=== PATIENT | female | born 1955 | race Caucasian/White ===

== ENCOUNTER 2017-11-06 12:58 | Day surgery (SDC) | payer OTHER ==
[~2017-11-06] VITALS: Ht 157.5 cm; Wt 69.8 kg
[~2017-11-06 12:58] MED LIST: ALEN70 PO; AMOX875 PO; BUTONI; CYCL10 PO; DULO30; DULO30 PO; HYDACE5; HYDACE5 PO; HYDMOR2 PO; LORA1 PO; NAPR500 PO; PRAM.125; PRAM.5 PO; PRED20 PO; RANI150 PO; RXHYDMOR2 PO; RXLORA1 PO; SUMA25; SUMA25 PO
[2017-11-06] MEDS ORDERED: BUSP5 (13:49)
[2017-11-06] MEDS ORDERED: ESCI5 (13:50)
[2017-11-06] MEDS ORDERED: ASPI81CH (13:51)
== END 2017-11-06 15:25 | disposition home or self-care (01) ==
LOC: ORSCSDS 12:58
PROVIDERS: Internal Medicine Gastroenterology
PROC: 0DJD8ZZ Inspection of Lower Intestinal Tract, Via Natural or Artificial Opening Endoscopic (ICD-10-PCS; principal; 2017-11-06 14:30)
DX: Z12.11 Encounter for screening for malignant neoplasm of colon (principal); K64.8 Other hemorrhoids; I10 Essential (primary) hypertension; K21.9 Gastro-esophageal reflux disease without esophagitis; E78.5 Hyperlipidemia, unspecified; F41.8 Other specified anxiety disorders; Z79.82 Long term (current) use of aspirin; Z79.899 Other long term (current) drug therapy
CPT/HCPCS: J7120

== ENCOUNTER 2019-08-29 11:16 | Day surgery (SDC) | payer OTHER ==
[~2019-08-29] VITALS: Ht 154.9 cm; Wt 169.5 kg
[~2019-08-29 11:16] MED LIST changes: +ASCO500 PO; +ASPI81CH; +Alendronate Sod10 MG PO; +Aspirin EC81 MG PO; +BUSP10 PO; +BUSP5; +CALCIUM + D3 E1 EACH PO; +ESCI10 PO; +ESCI5; +FISH OIL 1,2001 EACH PO; +IRBE150 PO; +Imitrex100 MG PO; +MULTIPLE VITAM1 EACH PO; +Norco 5-325 Ta1 EACH; +PRAMIPEXOLE DI1.5 MG
== END 2019-08-29 16:20 | disposition home or self-care (01) ==
LOC: ORSCSDS 11:16
PROVIDERS: Podiatrist Foot & Ankle Surgery
PROC: 0SGN04Z Fusion of Left Metatarsal-Phalangeal Joint with Internal Fixation Device, Open Approach (ICD-10-PCS; principal; 2019-08-29 12:30)
PROC: 0QSP04Z Reposition Left Metatarsal with Internal Fixation Device, Open Approach (ICD-10-PCS; principal; 2019-08-29 12:30)
PROC: 0SGQ04Z Fusion of Left Toe Phalangeal Joint with Internal Fixation Device, Open Approach (ICD-10-PCS; principal; 2019-08-29 12:30)
DX: M21.612 Bunion of left foot (principal); M20.40 Other hammer toe(s) (acquired), unspecified foot; M13.872 Other specified arthritis, left ankle and foot; I10 Essential (primary) hypertension; E78.5 Hyperlipidemia, unspecified; Z79.899 Other long term (current) drug therapy; Z79.82 Long term (current) use of aspirin
CPT/HCPCS: C1713; J0171; J0690; J1100; J1885; J2250; J2405; J2704; J3010; J7120

== ENCOUNTER → 2020-03-06 | Outpatient (CLI) | payer OTHER | END | disposition home or self-care (01) | LOC: LAB SHORT 16:46 → LAB EV 16:46 | DX: R22.40 Localized swelling, mass and lump, unspecified lower limb (principal) | CPT/HCPCS: 85379 ==

== ENCOUNTER → 2020-06-03 | Outpatient (CLI) | payer OTHER ==
[2020-06-03 12:02] LABS: BASOPHILS ABSOLUTE AUTO 0.05 K/mm3 (0.00-0.23); BASOPHILS PERCENT AUTO 1 % (0-2); EOSINOPHILS ABSOLUTE AUTO 0.21 K/mm3 (0.00-0.68); EOSINOPHILS PERCENT AUTO 3 % (0-6); Hematocrit 41.7 % (33.0-51.0); Hemoglobin 14.4 g/dL (11.5-16.0); IMMATURE GRAN ABSOLUTE AUTO 0.02 K/mm3 (0.00-0.10); IMMATURE GRAN PERCENT AUTO 0 % (0-1); LYMPHOCYTES ABSOLUTE AUTO 2.07 K/mm3 (0.84-5.20); LYMPHOCYTES PERCENT AUTO 27 % (21-46); MONOCYTES ABSOLUTE AUTO 0.64 K/mm3 (0.16-1.47); MONOCYTES PERCENT AUTO 8 % (4-13); Mean Corpuscular HGB 32.1 pg (26.0-34.0); Mean Corpuscular HGB Conc 34.5 g/dL (31.5-36.5); Mean Corpuscular Volume 93 fL (80-100); Mean Platelet Volume 9.7 fL (9.1-12.4); NEUTROPHILS ABSOLUTE AUTO 4.79 K/mm3 (1.96-9.15); NEUTROPHILS PERCENT AUTO 62 % (41-73); Platelet Count 289 K/mm3 (150-400); RDW Coefficient Variation 12.3 % (11.7-14.2); RDW Standard Deviation 41.8 fL (35.1-46.3); Red Blood Cell Count 4.49 M/mm3 (3.80-5.20); White Blood Cell Count 7.78 K/mm3 (4.00-11.30)
[2020-06-03 12:11] LABS: Anion Gap 8 mmol/L (6-16); Blood Urea Nitrogen 18 mg/dL (8-24); Bun/Creatinine Ratio 21.4 (12.0-20.0); CO2, Blood 30 mmol/L (21-32); Calcium, Blood 9.4 mg/dL (8.5-10.1); Chloride, Blood 99 mmol/L (98-108); Creatinine, Blood 0.84 mg/dL (0.40-1.00); Glomerular Filtration Rate >60 (60-); Glucose, Blood 98 mg/dL (70-99); Sodium, Blood 137 mmol/L (136-145)
[2020-06-03 12:27] LABS: Troponin I <0.017 ng/mL (0.000-0.040)
== END ==
LOC: LAB SHORT 11:56 → LAB EV 11:56
PROVIDERS: Physician Assistant Surgical
DX: R05 Cough (principal); R42 Dizziness and giddiness; Z20.828 Contact with and (suspected) exposure to other viral communicable diseases
CPT/HCPCS: 80048; 84484; 85025; 85379; U0003

== ENCOUNTER → 2020-07-03 | Outpatient (CLI) | payer OTHER ==
[2020-07-03 07:52] LABS: BASOPHILS ABSOLUTE AUTO 0.06 K/mm3 (0.00-0.23); BASOPHILS PERCENT AUTO 1 % (0-2); EOSINOPHILS ABSOLUTE AUTO 0.23 K/mm3 (0.00-0.68); EOSINOPHILS PERCENT AUTO 3 % (0-6); Hematocrit 39.7 % (33.0-51.0); Hemoglobin 13.5 g/dL (11.5-16.0); IMMATURE GRAN ABSOLUTE AUTO 0.03 K/mm3 (0.00-0.10); IMMATURE GRAN PERCENT AUTO 0 % (0-1); LYMPHOCYTES PERCENT AUTO 30 % (21-46); MONOCYTES ABSOLUTE AUTO 0.55 K/mm3 (0.16-1.47); MONOCYTES PERCENT AUTO 8 % (4-13); Mean Corpuscular HGB 31.9 pg (26.0-34.0); Mean Corpuscular Volume 94 fL (80-100); Mean Platelet Volume 9.8 fL (9.1-12.4); NEUTROPHILS PERCENT AUTO 57 % (41-73); Platelet Count 260 K/mm3 (150-400); RDW Coefficient Variation 11.9 % (11.7-14.2); RDW Standard Deviation 41.1 fL (35.1-46.3); Red Blood Cell Count 4.23 M/mm3 (3.80-5.20); White Blood Cell Count 6.67 K/mm3 (4.00-11.30)
[2020-07-03 08:19] LABS: Alanine Aminotransfer (ALT/SGP 28 U/L (12-78); Albumin, Blood 3.8 g/dL (3.4-5.0); Albumin/Globulin Ratio 1.1 (0.8-1.8); Alk Phos 77 U/L (40-126); Anion Gap 8 mmol/L (6-16); Aspartate Aminotrans (AST/SGOT 17 U/L (12-37); Bilirubin, Total 0.5 mg/dL (0.1-1.0); Blood Urea Nitrogen 17 mg/dL (8-24); Bun/Creatinine Ratio 23.3 (12.0-20.0); CHOL/HDL RATIO 2.5; CO2, Blood 29 mmol/L (21-32); Calcium, Blood 8.9 mg/dL (8.5-10.1); Chloride, Blood 101 mmol/L (98-108); Cholesterol 261 mg/dL (50-200); Creatinine, Blood 0.73 mg/dL (0.40-1.00); Globulin, Blood 3.5 g/dL (2.2-4.0); Glomerular Filtration Rate >60 (60-); Glucose, Blood 100 mg/dL (70-99); HDL Cholesterol 103 mg/dL (>39); LDL/HDL RATIO 1.4; Low Density Lipoprotein Chol 147 mg/dL (<110); Potassium, Blood 4.2 mmol/L (3.5-5.5); Sodium, Blood 138 mmol/L (136-145); Total Protein, Blood 7.3 g/dL (6.4-8.2); Triglycerides 55 mg/dL (30-160); Very Low Density Lipoprot Chol 11 mg/dL (6-32)
== END | disposition home or self-care (01) ==
LOC: LAB SHORT 07:31 → LAB EV 07:31
PROVIDERS: Physician Assistant
DX: I10 Essential (primary) hypertension (principal); E78.2 Mixed hyperlipidemia
CPT/HCPCS: 36415; 80053; 80061; 85025